=== PATIENT | male | born 1960 | race African-American/Black ===

== ENCOUNTER 2024-05-25 14:22 | Emergency (ER) | payer MEDICARE, MEDICAID ==
[~2024-05-25] VITALS: Ht 175.3 cm; Wt 95.0 kg
[~2024-05-25 14:22] MED LIST: [UNRECOGNIZED DRUG - REMARK]
[2024-05-25 14:28] VITALS: O2SAT 97
[2024-05-25] MEDS: KETOROLAC 30MG/ML VIAL IM STA (15:30)
[2024-05-25] MEDS: HYDROCODONE/ACETAMINOPHEN 5/325MG TABLET PO STA (15:30)
[2024-05-25 15:46] LABS: CARBON DIOXIDE 26 mEq/L (21-32); CHLORIDE 106 mEq/L (98-107); POTASSIUM 4.3 mEq/L (3.5-5.1); SODIUM 138 mEq/L (136-145)
[2024-05-25 15:47] LABS: CALCIUM 9.4 mg/dL (8.7-10.4)
[2024-05-25 15:49] LABS: PROTHROMBIN TIME 10.8 sec (9.6-11.0)
[2024-05-25 15:52] LABS: GLUCOSE 131 mg/dL (70-105); UREA NITROGEN BLOOD 22 mg/dL (9-23)
[2024-05-25 15:53] LABS: ALANINE AMINOTRANSFERASE 84 IU/L (10-49)
[2024-05-25 15:54] LABS: ASPARTATE AMINOTRANSFERASE 46 IU/L (<34); BILIRUBIN TOTAL 0.4 mg/dL (0.1-1.0)
[2024-05-25 15:56] LABS: BILIRUBIN DIRECT < 0.1 mg/dL (<=3.0)
[2024-05-25 15:58] LABS: BASOPHILS % 0.5 % (0.0-2.0); EOSINOPHILS % 2.6 % (0.0-5.0); HEMOGLOBIN. 12.3 g/dL (14.0-18.0); LYMPHOCYTES % 20.9 % (20.0-50.0); MEAN CORPUSCULAR HEMOGLOBIN 29.8 pg (28.0-32.0); MEAN CORPUSCULAR HGB CONC 33.3 g/dL (31.0-37.0); MEAN CORPUSCULAR VOLUME 89.5 fL (80.0-94.0); MONOCYTES % 14.1 % (2.0-8.0); NEUTROPHILS % 61.9 % (40.0-76.0); PLATELET 251 x1000/uL (130-400); RED BLOOD CELL COUNT 4.14 mill/uL (4.7-6.1); RED CELL DISTRIBUTION WIDTH 13.7 % (11.6-14.6); WHITE BLOOD COUNT 5.1 x1000/uL (4.5-11.0)
[2024-05-25 17:00] VITALS: BP 120/68; PULSE 71; RESP 17; TEMP 37.00296; O2SAT 100
[2024-05-25] MEDS ORDERED: CEFTRIAXONE 1GM/50ML 50 ML IV NR (20:00)
== END 2024-05-25 19:45 | disposition left against medical advice (07) ==
LOC: ER 14:42
DX: K43.9 Ventral hernia without obstruction or gangrene (principal); R33.9 Retention of urine, unspecified; I48.91 Unspecified atrial fibrillation; I11.0 Hypertensive heart disease with heart failure; I50.9 Heart failure, unspecified; Z91.014 Allergy to mammalian meats
CPT/HCPCS: 80076; 80048; 83690; 85025; 85610; 36415; 74176; 96372; 99285; J1885; Z7610 ×2